=== PATIENT | male | born 1945 | race Caucasian/White ===

== ENCOUNTER 2021-08-21 06:32 | Day surgery (SDC) | payer OTHER ==
[~2021-08-21] VITALS: Ht 167.6 cm; Wt 70.8 kg
[~2021-08-21 06:32] MED LIST: ASPI325T4 PO; CARV12.544 PO; HYDR-4296 PO; LISI20TA28 PO; OMEP20TA PO; SIMV-13 PO
[2021-08-21] MEDS ORDERED: IODIXANOL 320MG/ML 100ML BTL IV ONE ×3 (07:40→09:09)
[2021-08-21] MEDS ORDERED: ANGIOMAX 250 MG VIAL IV ONE (07:45)
[2021-08-21] MEDS ORDERED: LIDOCAINE 2%HCL (LOCAL ANESTH.) INJ 10ml MDV ONE (07:46)
[2021-08-21] MEDS ORDERED: MIDAZOLAM HCL 2MG/2ML 2ml VIAL (1mg/ml) ONE (07:46)
[2021-08-21] MEDS ORDERED: SODIUM CHL 0.9% 0 ML ONE (07:46)
[2021-08-21] MEDS ORDERED: fentaNYL CITRATE 100 MCG/2 ML VL ONE (07:46)
[2021-08-21] MEDS ORDERED: NITROGLYCERIN 5MG/ML 10ML VIAL IV ONE (09:24)
[2021-08-21] MEDS ORDERED: SODIUM CHL 0.9% 100 ML ONE (09:25)
[2021-08-21] MEDS ORDERED: SODIUM CHLORIDE 0.9% 1,000 ML IV SCH (09:30)
== END 2021-08-21 16:10 | disposition home or self-care (01) ==
LOC: CATH 06:32
PROVIDERS: ATTEND Internal Medicine Cardiovascular Disease
DX: R94.39 Abnormal result of other cardiovascular function study (principal); I10 Essential (primary) hypertension; E78.5 Hyperlipidemia, unspecified; E03.9 Hypothyroidism, unspecified; I73.00 Raynaud's syndrome without gangrene; J44.9 Chronic obstructive pulmonary disease, unspecified; Z87.891 Personal history of nicotine dependence; Z95.1 Presence of aortocoronary bypass graft; Z20.822 Contact with and (suspected) exposure to COVID-19
CPT/HCPCS: 93459; 99152; 99153; J2001; J2250; J3490; Q9967

== ENCOUNTER 2024-03-25 09:44 | Emergency (ER) | payer OTHER ==
[~2024-03-25] VITALS: Ht 167.6 cm; Wt 65.0 kg
[~2024-03-25 09:44] MED LIST changes: -ASPI325T4 PO; +ASPI325T6 PO; -HYDR-4296 PO; +HYDR25TA88 PO; -LISI20TA28 PO; +LISI20TA56 PO; -SIMV-13 PO; +SIMV40TA18 PO
[2024-03-25 10:06] VITALS: BP 153/77; PULSE 67; RESP 16; O2SAT 98
== END 2024-03-25 11:27 | disposition home or self-care (01) ==
LOC: ER 09:44
DX: R04.0 Epistaxis (principal); I10 Essential (primary) hypertension; E78.5 Hyperlipidemia, unspecified; F17.210 Nicotine dependence, cigarettes, uncomplicated; Z79.82 Long term (current) use of aspirin; Z79.899 Other long term (current) drug therapy
CPT/HCPCS: 30901

== ENCOUNTER 2024-10-30 07:12 | Inpatient (IN) | payer OTHER ==
[~2024-10-30] VITALS: Ht 170.2 cm; Wt 63.6 kg
--- NOTE | 2024-10-30 07:23 | ECG ---
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
--- NOTE | 2024-10-30 07:24 | ED.PDOC ---
History of Present Illness HPI Comments 79-year-old male with PMHx HLD, HTN brought in by EMS presents with a chief complaint of chest pain x 20 minutes prior to arrival. Patient states that his pain is localized to his sternal chest, nonradiating, describes as pressure. Patient was given 324mg ASA by EMS, but they withheld Nitro due to patient being slightly hypotensive. Patients blood pressure was 134/82 but went down to 101 systolic per EMS. Patient endorses cigarette use. Time Seen by MD: 07:16 Primary Care Provider: LEWIS Reviewed Notes: Medications, Allergies Allergies: Coded Allergies: Atorvastatin (Verified Allergy, Unknown, 10/30/24) Lactose Intolerance (GI) (Verified Allergy, Unknown, STOMACH UPSET, 08/19/21) Home Meds Reported Medications Hydralazine Hcl (Hydralazine Hcl) 25 Mg Tab, 25 MG PO PRN for FOR B/P GREATER THAN 150 , MG 08/19/21 Aspirin (Aspirin) 325 Mg Tab, 325 MG PO DAILY for CAD, MG 08/19/21 Lisinopril (Lisinopril) 20 Mg Tab, 20 MG PO DAILY for HTN for 30 Days, MG 08/19/21 Simvastatin (Simvastatin) 40 Mg Tab, 40 MG PO DAILY for HYPERLIPIDEMIA for 30 Days 08/19/21 Omeprazole (Gnp Omeprazole) 20 Mg Tab, 1 TAB PO DAILY for GERD, #90 TAB 1 Refill 08/19/21 Carvedilol (Carvedilol) 12.5 Mg Tab, 12.5 MG PO BID for HTN, MG 08/19/21 Information Source: Patient, Emergency Med Personnel Mode of Arrival: EMS Severity: Moderate Timing: Minutes Duration: Since onset Prehospital treatment: 12 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, 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, 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 Past Medical History PAST MEDICAL HISTORY: High Lipids, HTN Surgical History: CABG Family History Family History: Reviewed,noncontributory to illness Social History Smoker: Cigarettes Alcohol: Denies ETOH Use Drugs: Denies Drug Use Lives In: Home Constitutional: denies: chills, diaphoresis, fatigue, fever, malaise, sweats, weakness, others EENTM: denies: blurred vision, double vision, ear bleeding, ear discharge, ear drainage, ear pain, ear ringing, eye pain, eye redness, hearing loss, mouth pain, mouth swelling, nasal discharge, nose bleeding, nose congestion, nose pain, photophobia, tearing, throat pain, throat swelling, voice changes, others Respiratory: denies: cough, hemoptysis, orthopnea, SOB at rest, shortness of breath, SOB with excertion, stridor, wheezing, others Cardiovascular: reports: chest pain; denies: dizzy spells, diaphoresis, Dyspnea on exertion, edema, irregular heart beat, left arm pain, lightheadedness, palpitations, PND, syncope, others Gastrointestinal: denies: abdomen distended, abdominal pain, blood streaked bowels, constipated, diarrhea, dysphagia, difficulty swallowing, hematemesis, melena, nausea, poor appetite, poor fluid intake, rectal bleeding, rectal pain, vomiting, others Genitourinary: denies: burning, dysuria, flank pain, frequency, hematuria, incontinence, penile discharge, penile sore, pain, testicle pain, testicle swelling, urgency, others Neurological: denies: dizziness, fainting, headache, left sided numbness, left sided weakness, numbness, paresthesia, pre-existing deficit, right sided numbness, right sided weakness, seizure, speech problems, tingling, tremors, weakness, others Musculoskeletal: denies: back pain, gout, joint pain, joint swelling, muscle pain, muscle stiffness, neck pain, others Integumetry: denies: bruises, change in color, change in hair/nails, dryness, laceration, lesions, lumps, rash, wounds, others Allergic/Immunocompromised: denies: Difficulty Healing, Frequent Infections, Hives, Itching, others Hematologic/Lymphatic: denies: anemia, blood clots, easy bleeding, easy bruising, swollen glands, others Endocrine: denies: excessive hunger, excessive sweating, excessive thirst, excessive urination, flushing, intolerance to cold, intolerance to heat, unexplained weight gain, unexplained weight loss, others Psychiatric: denies: anxiety, bipolar disorder, depression, hopeless, panic disorder, schizophrenia, sleepless, suicidal, others All Other Systems: Reviewed and Negative Physical Exam General Appearance: Moderate Distress, Normal HEENT: Normal ENT Inspection, Pharynx Normal, TMs Normal Neck: Full Range of Motion, Non-Tender, Normal, Normal Inspection Respiratory: Chest Non-Tender, No Accessory Muscle Use, Other (Coarse breath sounds) Cardiovascular: No Edema, No JVD, No Murmur, No Gallop, Normal Peripheral Pulses, Regular Rate/Rhythm Breast Exam: Deferred Gastrointestinal: No Organomegaly, Non Tender, No Pulsatile Mass, Normal Bowel Sounds, Soft Genitalia: Deferred Pelvic: Deferred Rectal: Deferred Extremities: No calf tenderness, Normal capillary refill, Normal inspection, Normal range of motion, Non-tender, No pedal edema Musculoskeletal : Apperance: Normal Neurologic: Alert, bander II-XII nml as Tested, No Motor Deficits, Normal Affect, Normal Mood, No Sensory Deficits Cerebellar Function: NOT DONE Reflexes: NOT DONE Skin: Dry, Normal Color, Warm Peripheral Pulses: 3+ Radial (R), 3+ Radial (L) Lymphatic: No Adenopathy Was a procedure done? Was a procedure done?: No EKG EKG : Pulse Rate (adult): 95 [place]: Normal Cardiac Rhythm: NSR Block: None Hypertrophy: None ST: Normal Differential Dx Considerations may include: Pneumonitis Chest pain X-Ray, Labs, Meds, VS Vital Signs Date Time Temp Pulse Resp B/P (MAP) Pulse Ox O2 Delivery O2 Flow Rate FiO2 10/30/24 07:20 98.4 94 18 134/82 (99) 94 98.4 10/30/24 07:18 95 Patient alert. Complaining of chest pain. Continues to smoke cigarettes. Vitals stable. Counseled patient effects of smoking cigarettes for 15 minutes. Was given steroid. Continues to have chest pain. Had to hold off on nitro because of his blood pressure being low. Explained to the patient. Continue monitoring. Time of 1ST Reevaluation: 07:46 Reevaluation 1ST: Unchanged Patient Education/Counseling: Diagnosis, Treatment Family Education/Counseling: No Family Present Departure 1 Departure Time of Disposition: 07:27 Impression: Primary Impression: Pneumonitis Additional Impression: Chest pain of unknown etiology Disposition: 09 ADMITTED INPATIENT Admit to: Med Surg Condition: Guarded Critical Care Note Critical Care Time?: Yes (90 min-critical care time only) Critical care comment: Continues to have chest pain was given morphine Stability Stability form required: No Heart Score Heart Score: Heart Score Response (Comments) Value History Slightly Suspicious 0 EKG Normal 0 Age >65 2 Risk Factors >3 or Hx ASHD 2 Troponin Normal limit 0 Total 4 I personally scribed for BHVAYA SANCHEZ MD ([email or web address]) on 10/30/24 at 07:24. Electronically submitted by Calvin Long ([email or web address]). I personally scribed for BHAVYA SANCHEZ MD ([email or web address]) on 10/30/24 at 07:30. Electronically submitted by Calvin Long ([email or web address]). BHAVYA SANCHEZ MD Oct 30, 2024 07:24
[2024-10-30 07:41] LABS: Hematocrit 48.2 % (41.0-53.0); Hemoglobin 16.2 g/dL (13.5-17.5); Mean Corpuscular Hemoglobin 28.6 pg (28.0-32.0); Mean Corpuscular Hgb Conc. 33.6 g/dL (32.0-36.0); Mean Corpuscular Volume 85.1 fL (80.0-100.0); Platelet Count (auto) 191 10^3/uL (140-450); Red Blood Cells 5.67 10^6/uL (4.5-5.90); Red Cell Distribution Width 14.5 % (11.8-14.3)
[2024-10-30 07:44] LABS: Basophils % (manual) 0 (0.0-2.0); Blast Cells 0; Metamyelocytes % 0; Myelocytes % 0; Promyelocytes % 0; Reactive Lymphocytes 0
[2024-10-30 07:50] LABS: Potassium 3.7 mmol/L (3.5-5.1); Sodium 143 mmol/L (136-145)
[2024-10-30 07:51] LABS: Anion Gap 7 (5-15); Calcium 8.7 mg/dL (8.7-10.4); Carbon Dioxide 25 mmol/L (20-31)
[2024-10-30 07:52] LABS: Chloride 111 mmol/L (98-107)
[2024-10-30] MEDS: NITROGLYCERIN 0.4 MG SL TAB SL ONE (07:54)
[2024-10-30 07:55] LABS: Band Neutrophils % (manual) 5; Eosinophils % (manual) 1 (0-7); Lymphocytes % (manual) 2 (10.0-50.0); Monocytes % (manual) 5 (0-12); Platelet Estimate Adequate; RBC Morphology Normal
[2024-10-30 07:56] LABS: Blood Urea Nitrogen 16 mg/dL (9-23); Glucose 118 mg/dL (74-106)
[2024-10-30] MEDS: ONDANSETRON HCL 4 MG/2 ML VIAL IV ONE (07:56)
[2024-10-30] MEDS: methylPREDNISolone SOD SUCC 125 MG/2 ML VL IV ONE (07:57)
[2024-10-30] MEDS: MORPHINE SULFATE 4 MG/ML SYR/VIAL IV ONE (07:57)
--- NOTE | 2024-10-30 08:08 | DVH ---
CHEST RADIOGRAPH Indication: sob Technique: Single frontal view of the chest was obtained Comparison: FINDINGS: The cardiac silhouette is unremarkable. The lungs demonstrate possible 2 cm left lower lobe nodular r egion. The pulmonary vasculature is unremarkable. There is no pleural effusion.. There is no pneumoth orax. Aortic atherosclerotic disease. Median sternotomy wires. IMPRESSION: 1. Possible 2 cm left lower lobe nodular lesion. Recommend CT chest to further characterize.
--- NOTE | 2024-10-30 08:26 | ECG ---
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
[2024-10-30 08:48] LABS: Urine Bacteria None Seen /hpf (None Seen)
[2024-10-30 08:54] LABS: Urine Blood Negative /uL (Negative); Urine Clarity Clear (Clear); Urine Color Yellow (Yellow); Urine Mucus FEW (None Seen); Urine Protein, UAD TRACE (Negative); Urine Specific Gravity 1.026 (1.001-1.035); Urine Squamous Epithelial Cell None Seen /hpf (<5); Urine Urobilinogen 2 mg/dL (Negative); Urine WBC 2 /HPF (0-3); Urine pH 5.5 (5.0-9.0)
[2024-10-30 09:52] VITALS: PULSE 79; RESP 16; O2SAT 96
[2024-10-30 19:56] VITALS: PULSE 76; RESP 23; O2SAT 95
[2024-10-31] MEDS ORDERED: NITROGLYCERIN 0.4 MG SL TAB SL PRN (04:30)
[2024-10-31] MEDS ORDERED: hydrALAZINE HCL 25 MG TAB PO SCH (04:30)
[2024-10-31] MEDS ORDERED: MORPHINE SULFATE INJ 2 MG/ml SYRG IV PRN (04:30)
--- NOTE | 2024-10-31 04:48 | DVHHPRES ---
History of Present Illness Resident Creating Document: ANI LAY RESIDENT Reason for Visit: Chest pain History of Present Illness 79-year-old male with past medical history of hypertension, hyperlipidemia, coronary artery disease status post CABG 2016 presented with complaints of chest pain, nausea, vomiting, dizziness, diarrhea, epigastric and left hypochondriac pain. Patient mentioned that patient can walk a block and have some chest pain when he walks a block which is relieved with rest, but since yesterday patient is having chest pain on rest which she describes as pressure, nonradiating, not related with posterior, increased on activity and improved on rest. Patient also had epigastric pain and left hypochondriac pain associated with vomiting and dizziness on standing clear. He is not currently mentioning of any pain and mentioned that both epigastric and chest pain has been resolved. Patient mentioned he has been having 3 episodes of diarrhea since morning which is liquid in consistency. Patient had stress test one year ago for which he does not remember the results had echocardiogram 1-1/2 years ago which she said was within normal limits. He refused any complaints of headache, palpitation, orthopnea, PND, joint pain, cough, shortness of breath. Past medical history Hypertension Hyperlipidemia Coronary artery disease Past surgical history CABG 2016 Medication history Simvastatin Omeprazole Lisinopril Isosorbide Aspirin Flomax Amlodipine sotalol Hydralazine Family history non significant Social history Review of Systems Review of Systems As described in the HPI Allergies: Coded Allergies: Atorvastatin (Verified Allergy, Unknown, 10/30/24) Lactose Intolerance (GI) (Verified Allergy, Unknown, STOMACH UPSET, 08/19/21) Medications Current Medications Medications Dose Ordered Sig/Olena Route Start Time Stop Time Status Last Admin Dose Admin Nitroglycerin 0.4 mg Q5MINP PRN SL 10/31/24 04:30 UNV Morphine Sulfate 2 mg Q30M PRN IV 10/31/24 04:30 UNV Enoxaparin Sodium 40 mg DAILY SC 10/31/24 10:00 UNV Carvedilol 12.5 mg BID PO 10/31/24 10:00 UNV Hydralazine HCl 25 mg PRN PO 10/31/24 04:30 UNV Lisinopril 20 mg DAILY PO 10/31/24 10:00 UNV Patient Own Medication 1 tab DAILY PO 10/31/24 10:00 UNV Patient Own Medication 40 mg DAILY PO 10/31/24 10:00 UNV Aspirin 81 mg DAILY PO 10/31/24 10:00 UNV Exam Vital Signs Vital Signs Date Time Temp Pulse Resp B/P (MAP) Pulse Ox O2 Delivery O2 Flow Rate FiO2 10/31/24 04:28 98.4 77 23 144/69 (94) 93 98.4 10/30/24 19:56 Nasal Cannula* 2 28 Exam Examination General Appearance: Alert, Oriented X3, Cooperative, No acute distress HEENT: EOMI Respiratory: Clear to auscultation, Normal air movement Cardiovascular: Regular rate, Normal S1, Normal S2 Abdominal: Normal bowel sounds Extremities: No cyanosis, No edema, Normal pulses, No tenderness/swelling Skin: No rashes, No breakdown Neuro: Normal gait, Normal speech, Strength at 5/5 X4 ext, Normal tone, Sensation intact, Cranial nerves 3-12 NL, Reflexes 2+ Psych/Mental Status: Mental status NL, Mood NL Labs/Xrays Labs Test 10/30/24 10:51 10/30/24 08:46 10/30/24 07:32 Range/Units Troponin I High Sensitivity 10 </=54 ng/L Urine Color Yellow Yellow Urine Clarity Clear Clear Urine pH 5.5 5.0-9.0 Urine Specific [place] 1.026 1.001-1.035 Urine Protein Trace H Negative Urine Ketones Negative Negative Urine Blood Negative Negative /uL Urine Nitrite Negative Negative Urine Bilirubin Negative Negative Urine Urobilinogen 2 H Negative mg/dL Urine Leukocyte Esterase Negative Negative /uL Urine RBC <1 0 - 3 /hpf Urine Microscopic WBC 2 0-3 /HPF Urine Squamous Epithelial Cells None seen <5 /hpf Urine Bacteria None seen None Seen /hpf Urine Mucus Few None Seen Urine Glucose Normal Normal mg/dL White Blood Count 8.0 4.4-10.8 10^3/uL Red Blood Count 5.67 4.5-5.90 10^6/uL Hemoglobin 16.2 13.5-17.5 g/dL Hematocrit 48.2 41.0-53.0 % Mean Corpuscular Volume 85.1 80.0-100.0 fL Mean Corpuscular Hemoglobin 28.6 28.0-32.0 pg Mean Corpuscular Hemoglobin Concent 33.6 32.0-36.0 g/dL Red Cell Distribution Width 14.5 H 11.8-14.3 % Platelet Count 191 140-450 10^3/uL Mean Platelet Volume 8.1 6.9-10.8 fL Neutrophils (%) (Auto) 37.0-80.0 % Lymphocytes (%) (Auto) 10.0-50.0 % Monocytes (%) (Auto) 0.0-12.0 % Basophils (%) (Auto) 0.0-2.0 % Neutrophils # (Auto) 1.6-8.6 10 ^3/uL Lymphocytes # (Auto) 0.4-5.4 10 ^3/uL Monocytes # (Auto) 0-1.3 10 ^3/uL Differential Total Cells Counted 100.0 100 Neutrophils % (Manual) 87 H 37.0-80.0 Band Neutrophils % (Manual) 5 Lymphocytes % (Manual) 2 L 10.0-50.0 Monocytes % (Manual) 5 0-12 Eosinophils % (Manual) 1 0-7 Basophils % (Manual) 0 0.0-2.0 Metamyelocytes % (manual) 0 Myelocytes % (Manual) 0 Promyelocytes % (Manual) 0 Blast Cells % (Manual) 0 Reactive Lymphocytes 0 Platelet Estimate Adequate Red Blood Cell Morphology Normal Sodium Level 143 136-145 mmol/L Potassium Level 3.7 3.5-5.1 mmol/L Chloride Level 111 H 98-107 mmol/L Carbon Dioxide Level 25 20-31 mmol/L Anion Gap 7 5-15 Blood Urea Nitrogen 16 9-23 mg/dL Creatinine 1.00 0.700-1.30 mg/dL Glomerular Filtration Rate Calc 77 >90 mL/min BUN/Creatinine Ratio 16.0 10.0-20.0 Serum Glucose 118 H 74-106 mg/dL Calcium Level 8.7 8.7-10.4 mg/dL Assessment/Plan Assessment/Plan Assessment/plan # chest pain, rule out ACS, likely stable angina #History of CABG ekg shows no significant ST changes Normal trops -cardiology consulted for evaluation for need for stress test/left heart catheterization -resume home meds aspirin and simvastatin # likely viral gastroenteritis -conservative management with monitoring of electrolytes #Possible 2 cm left lower lobe nodular lesion -seen on CXRP -CT chest # hypertension Resume home medication #Hyperlipidemia Resume home medication #DVT prophylaxis -lovenox 40mg SC daily Case discussion with Dr Maxwell Plan discussed with: Patient, Other My Orders Orders - ANI LAY Procedure Category Date Status Time Admit ADMIT 10/31/24 Transmitted 04:29 Nitroglycerin PHA 10/31/24 Logged Sublingual (Ntrostat 04:30 Morphine Sulfate PHA 10/31/24 Logged Injection 04:30 Oxygen By Nasal RT 10/31/24 Transmitted Cannula 04:29 Stat Ekg For Chest [facility] 10/31/24 In Process Pain 04:29 Notify Of Changes [facility] 10/31/24 In Process From Base 04:29 Case Technician For [facility] 10/31/24 In Process 24 Hours 04:29 Emergency Dysrhythmia [facility] 10/31/24 In Process Protocol 04:29 Rhythm Strips Once [facility] 10/31/24 In Process Every Shift 04:29 * Cardiology Consult CONS 10/31/24 Transmitted 04:29 Enoxaparin Sodium [facility] 10/31/24 Logged (Lovenox) 10:00 Carvedilol Tablet PHA 10/31/24 Logged (Coreg Tablet) 10:00 Hydralazine Hcl PHA 10/31/24 Logged Tablet (Apresoline 04:30 Lisinopril Tablet PHA 10/31/24 Logged (Zestril Tablet) 10:00 (Nf) Omeprazole (Gnp PHA 10/31/24 Logged Omeprazole) 10:00 (Nf) Simvastatin PHA 10/31/24 Logged 10:00 Aspirin Tablet [facility] 10/31/24 Logged 10:00 Date of Service: Oct 31, 2024 Billing Provider: JESÚS MAXWELL MD Common Visit Codes: [id number] INP/OBS CARE (HIGH) Secondary Visit Codes: [id number] CARE PLAN 30 MINUTES ANI LAY Oct 31, 2024 04:48 JESÚS MAXWELL MD Oct 31, 2024 21:49
[2024-10-31] MEDS: PANTOPRAZOLE 40 MG TAB PO SCH (06:54)
[2024-10-31 08:00] VITALS: TEMP 97.8
[2024-10-31 10:00] VITALS: BP 123/66; RESP 18; O2SAT 90
[2024-10-31] MEDS: CARVEDILOL 12.5 MG TAB PO SCH (10:26)
[2024-10-31] MEDS: ASPirin 81 mg TAB PO SCH (10:27)
[2024-10-31] MEDS: ENOXAPARIN SOD 40 MG/0.4 ML SYRINGE SC SCH (10:28)
[2024-10-31] MEDS: LISINOPRIL 20 MG TAB PO SCH (10:28)
--- NOTE | 2024-10-31 10:40 | DVHINCON2 ---
[facility] 10/31/24 1040: Date Seen: Oct 31, 2024 Referring Physician MD Spencer Reason for Consultation Chest pain History of Present Illness This is a pleasant 79-year-old man who presented to the emergency room via EMS with a chief complaint of chest pain for 20 minutes. The patient reports he stood up from his bed with substernal chest pain radiating to the left inframammary area, pressure-like, non provoked, constant, and associated with mild SOB, generalized weakness, and N/V/D. Reports taking two NTG SL 0.4 mg wi th no relief of symptoms which prompted him to call 911. EN route to the hospital he was medicated with ASA 324 mg and IVF 500 ccs. Upon arrival to the emergency room he underwent multiple 12 lead electrocardiograms x 2 revealing a sinus rhythm with no evidence of nonspecific ST-T wave changes. Serial troponin levels are negative. Follows up in the outpatient setting with Dr. Figueroa with latest appointment being on 03/2024. Significant medical history includes coronary artery disease undergoing a quintuple vessel CABG in 2016 at [facility] and on ASA 325 mg QD, hypertension, dyslipidemia, benign prostatic hyperplasia, and current tobacco use including a smoking exposure x 45 pack-years. Past Medical History Past medical history reviewed. No other significant than mentioned above. Past Surgical History Quintuple vessel CABG, 2016 Family History Family history reviewed. Social History Denies the use of illicit drugs or alcohol use. Admits to tobacco use since 18 years old. See HPI. Allergies: Coded Allergies: Atorvastatin (Verified Allergy, Unknown, 10/30/24) Lactose Intolerance (GI) (Verified Allergy, Unknown, STOMACH UPSET, 08/19/21) Home Meds Reported Medications Hydralazine Hcl (Hydralazine Hcl) 25 Mg Tab, 25 MG PO PRN for FOR B/P GREATER THAN 150 , MG 08/19/21 Aspirin (Aspirin) 325 Mg Tab, 325 MG PO DAILY for CAD, MG 08/19/21 Lisinopril (Lisinopril) 20 Mg Tab, 20 MG PO DAILY for HTN for 30 Days, MG 08/19/21 Simvastatin (Simvastatin) 40 Mg Tab, 40 MG PO DAILY for HYPERLIPIDEMIA for 30 Days 08/19/21 Omeprazole (Gnp Omeprazole) 20 Mg Tab, 1 TAB PO DAILY for GERD, #90 TAB 1 Refill 08/19/21 Carvedilol (Carvedilol) 12.5 Mg Tab, 12.5 MG PO BID for HTN, MG 08/19/21 Home Meds Home medications reviewed. Current Medications Current Medications Medications (Trade) Dose Ordered Sig/Olena Route PRN Reason Start Time Stop Time Status Last Admin Nitroglycerin (Ntrostat Sublingual) 0.4 mg Q5MINP PRN SL FOR CHEST PAIN 10/31/24 04:30 Morphine Sulfate 2 mg Q30M PRN IV FOR CHEST PAIN 10/31/24 04:30 Enoxaparin Sodium (Lovenox) 40 mg DAILY SC 10/31/24 10:00 Carvedilol (Coreg Tablet) 12.5 mg BID PO 10/31/24 10:00 Hydralazine HCl (Apresoline Tablet) 25 mg PRN PO 10/31/24 04:30 Lisinopril (Zestril Tablet) 20 mg DAILY PO 10/31/24 10:00 Pantoprazole Sodium (Protonix Tablet) 40 mg DAILY@0700 PO 10/31/24 07:00 10/31/24 06:54 Patient Own Medication 40 mg HS PO 10/31/24 22:00 Aspirin 81 mg DAILY PO 10/31/24 10:00 Review of Systems Constitutional: No symptom reported Ears, Nose, & Throat: No symptom reported Eyes: No symptom reported Neurological: No symptoms reported Pulmonary/Respiratory: SOB Cardiovascular: Chest pain Gastrointestinal: No symptom reported Genitourinary: No symptom reported Musculoskeletal: No symptom reported Skin: No symptom reported Psychiatric: No symptom reported Endocrine: No symptom reported Hemotologic/Lymphatic: No symptom reported Vital Signs Vital Signs Date Time Temp Pulse Resp B/P (MAP) Pulse Ox O2 Delivery O2 Flow Rate FiO2 10/31/24 08:00 103 10/31/24 08:00 Room Air* 0 21 10/31/24 08:00 97.8 22 128/72 (85) 92 97.8 Physical Exam General Appearance: Cooperative. Well developed. Well nourished. In no acute distress Head Exam: Normal inspection Neck Exam: Normal inspection. Non-tender. Normal alignment Pulmonary/Respiratory: Chest non-tender. Clear bilateral breath sounds Cardiovascular/Chest: Regular rate and rhythm. S1, S2. Sinus rhythm without evidence of acute ST-T wave changes. No murmurs. No JVD. Peripheral Pulses: 2+ Radial (R). 2+ Radial (L). 2+ Pedal (R). 2+ Pedal (L) Abdominal Exam: Normal bowel sounds. Soft. Ankle Exam: Negative ankle edema Lower extremities: Negative lower extremity edema Neuro/Mental Status: A&O x4. Coherent Thoughts/Psych: Normal thought pattern. Appropriate mood and affect. Good judgement and insight Appearance: In no acute distress Skin Exam: Normal inspection. Normal color. Warm. Dry Labs/Diagnostic Data Labs Test 10/30/24 10:51 10/30/24 08:46 10/30/24 07:32 Range/Units Troponin I High Sensitivity 10 </=54 ng/L Urine Color Yellow Yellow Urine Clarity Clear Clear Urine pH 5.5 5.0-9.0 Urine Specific [place] 1.026 1.001-1.035 Urine Protein Trace H Negative Urine Ketones Negative Negative Urine Blood Negative Negative /uL Urine Nitrite Negative Negative Urine Bilirubin Negative Negative Urine Urobilinogen 2 H Negative mg/dL Urine Leukocyte Esterase Negative Negative /uL Urine RBC <1 0 - 3 /hpf Urine Microscopic WBC 2 0-3 /HPF Urine Squamous Epithelial Cells None seen <5 /hpf Urine Bacteria None seen None Seen /hpf Urine Mucus Few None Seen Urine Glucose Normal Normal mg/dL White Blood Count 8.0 4.4-10.8 10^3/uL Red Blood Count 5.67 4.5-5.90 10^6/uL Hemoglobin 16.2 13.5-17.5 g/dL Hematocrit 48.2 41.0-53.0 % Mean Corpuscular Volume 85.1 80.0-100.0 fL Mean Corpuscular Hemoglobin 28.6 28.0-32.0 pg Mean Corpuscular Hemoglobin Concent 33.6 32.0-36.0 g/dL Red Cell Distribution Width 14.5 H 11.8-14.3 % Platelet Count 191 140-450 10^3/uL Mean Platelet Volume 8.1 6.9-10.8 fL Neutrophils (%) (Auto) 37.0-80.0 % Lymphocytes (%) (Auto) 10.0-50.0 % Monocytes (%) (Auto) 0.0-12.0 % Basophils (%) (Auto) 0.0-2.0 % Neutrophils # (Auto) 1.6-8.6 10 ^3/uL Lymphocytes # (Auto) 0.4-5.4 10 ^3/uL Monocytes # (Auto) 0-1.3 10 ^3/uL Differential Total Cells Counted 100.0 100 Neutrophils % (Manual) 87 H 37.0-80.0 Band Neutrophils % (Manual) 5 Lymphocytes % (Manual) 2 L 10.0-50.0 Monocytes % (Manual) 5 0-12 Eosinophils % (Manual) 1 0-7 Basophils % (Manual) 0 0.0-2.0 Metamyelocytes % (manual) 0 Myelocytes % (Manual) 0 Promyelocytes % (Manual) 0 Blast Cells % (Manual) 0 Reactive Lymphocytes 0 Platelet Estimate Adequate Red Blood Cell Morphology Normal Sodium Level 143 136-145 mmol/L Potassium Level 3.7 3.5-5.1 mmol/L Chloride Level 111 H 98-107 mmol/L Carbon Dioxide Level 25 20-31 mmol/L Anion Gap 7 5-15 Blood Urea Nitrogen 16 9-23 mg/dL Creatinine 1.00 0.700-1.30 mg/dL Glomerular Filtration Rate Calc 77 >90 mL/min BUN/Creatinine Ratio 16.0 10.0-20.0 Serum Glucose 118 H 74-106 mg/dL Calcium Level 8.7 8.7-10.4 mg/dL Assessment Chest pain rule out progressive coronary artery disease Coronary artery disease status post five-vessel CABG (on ASA 325mg) Hypertension Dyslipidemia Nicotine dependence Plan/Recommendation (Dr. Alvarado) Case discussed with Dr. Alvarado. The patient has been scheduled for a transthoracic echocardiogram to rule out structural heart disease. At the same time, he was recommended to undergo a Cardiolite stress test to rule out progressive coronary artery disease. Nevertheless, the patient prefers to follow up with ischemic workup as an outpatient with Dr. Figueroa as he is asking to be discharged home to care for his pet. He understands the risks of withholding inpatient work-up including worsening clinical deterioration and event . In the meantime, continue single antiplatelet therapy and lipid lowering agent. Kindly call if in need to continue following up. We will sign off at this time. Thank you for allowing us to participate in this patient's care. This medical document was created using an electronic medical record system with voice recognition software and computerized dictation system. Although this document has been carefully reviewed, there might still be some phonetic and typographical errors. Occasional wrong-word or ``sound-alike substitutions may have occurred due to the inherent limitations of voice recognition software. These areas are purely typographical due to imperfections of the software programs and do not reflect any compromise in the patient's medical care. Please read the chart carefully and recognize, using context, where these substitutions have occurred. Plan discussed with: Patient, Other NYHA Physical activity limitations: NA Date of Service: Oct 31, 2024 Billing Provider: [facility] Common Codes: [id number] INP/OBS CARE (High) FELIZ ALVARADO MD 10/31/24 1219: Allergies: Coded Allergies: Atorvastatin (Verified Allergy, Unknown, 10/30/24) Lactose Intolerance (GI) (Verified Allergy, Unknown, STOMACH UPSET, 08/19/21) Home Meds Reported Medications Hydralazine Hcl (Hydralazine Hcl) 25 Mg Tab, 25 MG PO PRN for FOR B/P GREATER THAN 150 , MG 08/19/21 Aspirin (Aspirin) 325 Mg Tab, 325 MG PO DAILY for CAD, MG 08/19/21 Lisinopril (Lisinopril) 20 Mg Tab, 20 MG PO DAILY for HTN for 30 Days, MG 08/19/21 Simvastatin (Simvastatin) 40 Mg Tab, 40 MG PO DAILY for HYPERLIPIDEMIA for 30 Days 08/19/21 Omeprazole (Gnp Omeprazole) 20 Mg Tab, 1 TAB PO DAILY for GERD, #90 TAB 1 Refill 08/19/21 Carvedilol (Carvedilol) 12.5 Mg Tab, 12.5 MG PO BID for HTN, MG 08/19/21 Plan/Recommendation acs ruled out all 4 grafts open on [facility] 2021 stress mpi Plan discussed with: Patient SHAMA TOM Oct 31, 2024 10:40 FELZI ALVARADO MD Oct 31, 2024 12:19
--- NOTE | 2024-10-31 10:58 | DVH ---
Procedure: CT CHEST WITHOUT CONTRAST Reason for study/Clinical History: lung nodule Comparison Study: None Exam Date: 10/31/2024 08:50 AM TECHNIQUE: Multidetector CT of the chest was performed from the lung apices to the upper abdomen with out the use of intravenous contract. Axial, coronal and sagittal multiplanar reformats were performed . Radiation Dose Information: CT Dose: CTDI volume is 7.84 mGy. Dose-length product is 317.06 mGy*cm The dose indicators for CT are the volume Computed Tomography (CT) Dose Index (CTDIvol) and the Dose Length Product (DLP), and are measured in units of mGy and mGy-cm, respectively. These indicators are not patient dose, but values generated from the CT scanner acquisition factors. The report includes radiation exposure data for exposures received during this examination. FINDINGS: Lower neck: Normal thyroid. Lungs: No focal consolidation, pleural effusion or pneumothorax. Heart/Vascular Structures: Normal heart size. No pericardial effusion. Lymph Nodes: No adenopathy Pleura: No pleural effusion or significant pneumothorax. Musculoskeletal: No acute osseous abnormality. Soft tissues: Normal. Upper abdomen: Gallstones. Hepatic steatosis. IMPRESSION: No acute intrathoracic abnormality. Thickening of the stomach. EGD recommended. Gallstones Radiation optimization: All CT scans at this facility use at least one of these dose optimization charline hniques: automated exposure control mA and/or kV adjustment per patient size (includes targeted exam s where dose is matched to clinical indication) or iterative reconstruction.
[2024-10-31 12:00] VITALS: PULSE 79
--- NOTE | 2024-11-01 13:14 | ECG ---
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
== END 2024-10-31 12:21 | disposition left against medical advice (07) | DRG 303 ==
LOC: EDSEX 07:12 → EDBD 07:12 → ER 07:12 → OVERFLOW 12:21
PROVIDERS: ADMIT Hospitalist; ATTEND Hospitalist
DX: I25.118 Atherosclerotic heart disease of native coronary artery with other forms of angina pectoris (principal); A08.4 Viral intestinal infection, unspecified; I10 Essential (primary) hypertension; E78.5 Hyperlipidemia, unspecified; F17.210 Nicotine dependence, cigarettes, uncomplicated; Z53.29 Procedure and treatment not carried out because of patient's decision for other reasons; Z88.8 Allergy status to other drugs, medicaments and biological substances; Z79.82 Long term (current) use of aspirin; Z79.899 Other long term (current) drug therapy; Z95.1 Presence of aortocoronary bypass graft
CPT/HCPCS: 36415; 71045; 71250; 80048; 81001; 84484; 85007; 85027; 93005; 96374; 96375; 99291; 99292; G0378; J2405